=== PATIENT | female | born 1955 | race Caucasian/White ===

== ENCOUNTER → 2017-08-18 | Outpatient (CLI) | payer BC ==
--- NOTE | 2017-08-18 11:02 | RADIOLOGY IMAGING REPORT ---
FACILITY: [facility] [place] PATIENT NAME: Laurita Mobley : 1955 MR: [id number] V: [id number] EXAM DATE: ORDERING PHYSICIAN: LASHA NIELSON TECHNOLOGIST: Location: [facility] Patient: Laurita Mobley : 1955 Visit/Account:[id number] Date of Sevice: 08/18/2017 DEXA Scan Clinical history: Postmenopausal. Comparison: None available. LUMBAR SPINE: The bone mineral density (BMD) measured from L1-L4 correlates with a Z-score 2.3 and a T-score of 2.3 which is Normal as defined by the World Health Organization. The corresponding risk of fracture in the lumbar spine is Not increased compared with a young adult reference population. HIP: Bone mineral density (BMD) measured in the Left total hip region correlates with a Z-score 0.2 and a T-score of one which is Normal as defined by the World Health Organization. The corresponding risk o f fracture in the hip is Not increased compared with a young adult reference population. T score le ft femoral neck -1.4 Bone mineral density (BMD) measured in the Femoral Neck region measures 0.849 g/cm2. Impression: 1. Lumbar spine: Normal. 2. Left Hip: Normal. 3. Femoral Neck: Bone Mineral Density is 0.849 g/cm2 The next DEXA scan of this patient should include the following sites: L1-L4 and the left hip. FRAX? WHO Fracture Risk Assessment Tool link: <http://www.shef.ac.uk/FRAX/tool.jsp?locationValue=9> PLEASE NOTE: 1) The World Health Organization defines low BMD as follows: T-score Normal > -1 Osteopenia < -1 and > -2.5 Osteoporosis < -2.5 without fractures Established osteoporosis < -2.5 with fractures 2) In general, you may wish to consider: Diagnosis Treatment Follow-up DEXA Normal BMD Prevention 2-3 years Osteopenia Prevention/therapy 1-2 years Osteoporosis Therapy Yearly 3) Fracture risk estimated from the T-score is more accurate for vertebral fractures (often spontane ous) than for hip fractures. Report Dictated By: Sierra Whitaker MD at 08/18/2017 10:55 AM Report E-Signed By: Sierra Whitaker MD at 08/18/2017 10:56 AM CORDELLN:JERAMY
== END ==
LOC: RAD 09:38
PROVIDERS: ATTEND Nurse Practitioner Family
DX: Z13.820 Encounter for screening for osteoporosis (principal); Z78.0 Asymptomatic menopausal state
CPT/HCPCS: 77080

== ENCOUNTER → 2017-09-08 | Outpatient (CLI) | payer BC ==
--- NOTE | 2017-09-09 20:26 | RADIOLOGY IMAGING REPORT ---
FACILITY: [facility] [place] PATIENT NAME: LAURITA BAILEY : [id number] MR: [id number] V: [id number] EXAM DATE: ORDERING PHYSICIAN: LASHA NIELSON TECHNOLOGIST: Laurita Riley EXAMINATION:TWO-DIMENSIONAL ECHOCARDIOGRAPH REASON:ABN EKG 2D Measurements (normal values in centimeters) LV endLV endRV endVent.LV PostAorticLeftPercent DiastolicSystolicDiastolicSeptumWallRootAtriumShortening (3.5-5.7)(0.9-2.6)(0.6-1.1)(0.6-1.1)(2.0-3.7)(1.9-4.0)(25-35%) [id number]% STROKE VOLUME: 99ml ESTIMATED EJECTION FRACTION:72% PARASTERNAL LONG AXIS: Overall left ventricular systolic function appears to be normal. Right ventricle appears to be mildly enlarged. Other chamber sizes are normal. Aortic valve & mitral valve both appear to open normally. Color examination just revealed a trace of mitral insufficiency present. PARASTERNAL SHORT AXIS: Overall left ventricular systolic function again appears to be normal. No specific wall motion abnormalities are noted. Right ventricle is the upper range of normal in size if not slightly enlarged. Other chamber sizes are normal. Aortic valve is trileaflet in configuration & appears to open normally. Color examination of the tricuspid valve revealed a trace of tricuspid insufficiency. Color examination of the pulmonic valve & aortic valves were unremarkable. APICAL FOUR AND TWO CHAMBER: Normal left ventricular systolic function. Right ventricle appears to be borderline to mildly enlarged. Aortic valve area was measured within normal ranges at 3.8cm2. Mitral valve area was measured within normal ranges at 5.5cm2. Left atrial & right atrial volumes are measured within normal ranges at 27 & 26ml/m2. The tricuspid regurgitation Vmax measured 2.36m/sec. SUBCOSTAL VIEW: No pericardial effusion was noted. No atrioseptal or ventriculoseptal defects were appreciated. Doppler examination of the mitral valve in diastole does reveal the A wave > E wave suggesting decreased diastolic function. The IVC is normal in size. OVERALL IMPRESSION: 1. Essentially normal 2D echocardiograph. Normal left ventricular systolic function. Estimated ejection fraction 72% with a mild decrease in diastolic function consistent with age. 2. Normal chamber sizes except for the right ventricle which is borderline to mildly enlarged. 3. A trileaflet aortic valve with no abnormalities. 4. A trace of mitral & tricuspid insufficiency with normal right ventricular systolic pressures of 25mm Hg. No other abnormalities were noted. Dictated by: Rochelle Rojo M.D. on 09/08/2017 at 17:27 Transcribed by: NATHALIE on 09/09/2017 at 10:27 Approved by: Rochelle Rojo M.D. on 09/09/2017 at 20:24 [facility]
== END ==
LOC: US 02:19
PROVIDERS: ATTEND Nurse Practitioner Family
DX: I50.30 Unspecified diastolic (congestive) heart failure (principal); I51.7 Cardiomegaly; I34.0 Nonrheumatic mitral (valve) insufficiency; I07.1 Rheumatic tricuspid insufficiency
CPT/HCPCS: 93306

== ENCOUNTER 2017-09-22 00:25 | Inpatient (IN) | payer BC ==
--- NOTE | 2017-08-18 10:30 | EKG ---
FACILITY: [facility] - [place] PATIENT NAME: JODY BAILEY : [id number] MR: [id number] V: [id number] EXAM DATE: ORDERING PHYSICIAN: RAJ ROLDAN TECHNOLOGIST: DAIANA Franco Reason : PRE-OP KNEE Blood Pressure : / mmHG Vent. Rate : 062 BPM Atrial Rate : 062 BPM P-R Int : 172 ms QRS Dur : 084 ms QT Int : 422 ms P-R-T Axes : 053 009 034 degrees QTc Int : 428 ms Normal sinus rhythm Low voltage QRS Cannot rule out Anterior infarct , age undetermined Abnormal ECG No previous ECGs available Confirmed by WHIT ALEJO ([id number]) on 08/18/2017 4:04:38 PM Referred By: JAMAR Confirmed By:WHIT ALEJO
--- NOTE | 2017-08-18 10:41 | RADIOLOGY IMAGING REPORT ---
[place]AC[place] [facility] [place]IENT NAME: Laurita Mobley : 1955 MR: [id number] V: [id number] EXAM DATE: ORDERING PHYSICIAN: RAJ ROLDAN TECHNOLOGIST: [place] [facility] [place] Laurita Mobley : 1955 Visit/Account:[id number] Date of Sevice: 08/18/2017 Exam type: CHEST PA AND LAT History: History of pulmonary embolism Comparison: None. Findings: Both lungs are well-expanded. Some areas of linear scarring or atelectasis over the left midlung and right costophrenic angle are noted. No focal infiltrate, pleural effusion or pneumothorax. Heart size is slightly prominent. The osseous structures demonstrate a mild scoliosis with a pectus deformity and degenerative changes. IMPRESSION: 1. No acute cardiopulmonary disease. Report Dictated By: Terrell De La Torre MD at 08/18/2017 10:34 AM Report E-Signed By: Terrell De La Torre MD at 08/18/2017 10:36 AM WSN:[email or web address]
[2017-09-22] VITALS (15 sets, daily range): BP systolic 132–150; BP diastolic 60–77
[~2017-09-22] VITALS: Ht 165.1 cm; Wt 97.5 kg
[~2017-09-22 00:25] MED LIST: ASPI-757 PO; ATOR40TA24 PO; INSU100C14 SQ; LANI SUBQ; LEVO50TA86 PO; METF-420 PO; RAMI10CA52 PO; WARF10TA34 PO; WARF7.5T13 PO
[2017-09-22] MEDS ORDERED: LIDOCAINE/SOD BICARB 8.4% SYR ID ONE (07:45)
[2017-09-22] MEDS ORDERED: CLINDAMYCIN(*) 900 MG/NS 50 ML 50 ML IVPB ONE (07:45)
[2017-09-22] MEDS ORDERED: TRANEXAMIC AC 1000 MG/10ML SDV 1,000 MG in DEXTROSE 5% 50 ML BAG 50 ML IV ONE (07:45)
[2017-09-22] MEDS ORDERED: cloNIDine EPIDUR INJ 100MCG/ML 40 MCG, ROPIVACAINE 0.5% 20 ML VIAL 25 ML, EPINEPHrine H... INJ ONE (07:45)
[2017-09-22] MEDS ORDERED: MIDAZOLAM 2 MG/2 ML VIAL IVP PRN (07:45)
[2017-09-22] MEDS ORDERED: FAMOTIDINE 20 MG TAB PO ONE (07:45)
[2017-09-22] MEDS: NORMOSOL R SOLN(*) 1000 ML BAG 1,000 ML IV PRN ×2 (07:49→09:02)
[2017-09-22 07:59] LABS: INR 1.02
[2017-09-22] MEDS ORDERED: SCOPOLAMINE 1.5 MG PATCH TD ONE (08:05)
[2017-09-22] MEDS ORDERED: BUPIVACAINE 0.5% INJ 50ML VIAL INFIL ONE (10:05)
[2017-09-22] MEDS ORDERED: TRIAMCINOLONE ACE(*) 40 MG/ML 1 ML ONE (10:05)
[2017-09-22] MEDS ORDERED: KETAMINE HCL 200 MG/20 ML MDV ONE (10:14)
[2017-09-22] MEDS ORDERED: fentaNYL CITR 100 MCG/2 ML AMP ONE (10:20)
--- NOTE | 2017-09-22 10:28 | HISTORY AND PHYSICAL ---
DATE OF ADMISSION: September 22, 2017 IDENTIFICATION, CHIEF COMPLAINT Laurita is a 61-year-old woman with chief complaint of left knee pain. HISTORY OF PRESENT ILLNESS Patient has had a longstanding history of knee arthritis progressively painful and debilitating, refractory to conservative care. Surgery is indicated to relieve symptoms after failure of nonoperative measures. PAST MEDICAL HISTORY Notable for hypertension, controlled on medication, acid reflux disease. ALLERGIES TREE POLLEN and ADHESIVE tapes. She has no known drug allergies. CURRENT MEDICATIONS 1. Amlodipine 5/40 once a day. 2. Famotidine 40 mg p.o. q.day. 3. Baby aspirin p.o. q.day. 4. Multiple vitamins. PAST SURGICAL HISTORY Notable for resection of an acoustic neuroma. SOCIAL HISTORY Negative for tobacco use. She uses alcohol on a rare social occasion, denies abuse. FAMILY HISTORY Notable for heart disease in father, mother with cancer and a brother with leukemia. REVIEW OF SYSTEMS Review of systems otherwise noncontributory. PHYSICAL EXAMINATION GENERAL: This is a healthy female. HEENT: She is normocephalic, atraumatic. NECK: Supple. LUNGS: Clear. HEART: Regular. ABDOMEN: Soft. ORTHOPEDIC EXAM: The left knee is stiff at end of range of motion. There is an effusion present. Gross stability is good. Extensor function is intact. RADIOGRAPHIC DATA Radiographs demonstrate end-stage DJD. ASSESSMENT Left knee end-stage degenerative joint disease, progressively painful and debilitating, refractory to conservative care. PLAN Per patient request, will proceed with total knee arthroplasty. Nature of this procedure, risks, benefits, the anticipated rehab course were reviewed. The risks of the procedure include, but are not limited to, , major medical or anesthetic complication, infection, neurovascular injury, blood transfusion, stiffness, scarring, fracture, tendon rupture, instability, implant loosening, migration or failure, persistent or recurrent pain, need for future surgery, and other unforeseen. She understands and wishes to proceed. Signed permit was placed in the chart, no guarantees given or implied. AGUEDA
[2017-09-22] MEDS ORDERED: DEXAMETHASONE SOD PHOS 10MG/ML ONE (11:28)
[2017-09-22] MEDS ORDERED: PROPOFOL EMUL(*) 10MG/ML 20 ML 160 ML ONE (11:28)
[2017-09-22] MEDS ORDERED: ONDANSETRON 4 MG/2 ML VIAL ONE (11:28)
[2017-09-22] MEDS ORDERED: ROPIVACAINE 0.5% 20 ML VIAL ONE (11:29)
[2017-09-22] MEDS ORDERED: LIDOCAINE MPF 1% 5 ML VIAL ONE (11:29)
--- NOTE | 2017-09-22 11:49 | HISTORY AND PHYSICAL ---
DATE OF ADMISSION: September 22, 2017 IDENTIFICATION, CHIEF COMPLAINT Laurita is a 61-year-old woman with chief complaint of left knee pain. HISTORY OF PRESENT ILLNESS Patient has had a longstanding history of knee arthritis progressively painful and debilitating, refractory to conservative care. Surgery is indicated to relieve symptoms after failure of nonoperative measures. PAST MEDICAL HISTORY Notable for diabetes, hypothyroidism, history of pulmonary emboli, hypercholesterolemia. ALLERGIES PENICILLIN. CURRENT MEDICATIONS 1. Metformin 1000 mg p.o. b.i.d. 2. NovoLog sliding scale insulin. 3. Levothyroxine 50 mcg p.o. q.day. 4. Ramipril 10 mg p.o. q.day. 5. Coumadin 10 mg Thursday, Thursday, Thursday, 7.5 on the other days. 6. Atorvastatin 40 mg p.o. q.day. 7. Lantus 22 units x 2 in the morning and at bedtime. 8. Aspirin 325 mg p.o. b.i.d. PAST SURGICAL HISTORY Notable for C section x 3, tonsillectomy, thyroid surgery and knee arthroscopies. SOCIAL HISTORY Negative for tobacco use. She drinks alcohol on a rare social basis. REVIEW OF SYSTEMS Negative. FAMILY HISTORY Notable for mother with stroke and father with heart disease and stroke. PHYSICAL EXAMINATION GENERAL: This is a well-developed, well-nourished female, appears stated age. HEENT: She is normocephalic, atraumatic. NECK: Supple. LUNGS: Clear. HEART: Regular. ABDOMEN: Soft. ORTHOPEDIC EXAM: The left knee is stiff at end of range of motion. She has an effusion present. Crepitus is noted. Gross stability is good. Extensor function is intact. RADIOGRAPHIC DATA Radiographs demonstrate end-stage DJD. ASSESSMENT Left knee end-stage degenerative joint disease, progressively painful and debilitating, refractory to conservative care. PLAN Per patient request, we are going to proceed with total knee arthroplasty. Nature of this procedure, risks, benefits, the anticipated rehabilitative course were reviewed. Risks include, but are not limited to, , major medical or anesthetic complication, infection, neurovascular injury, blood transfusion, stiffness, scarring, fracture, tendon rupture, instability, implant loosening, migration or failure, persistent or recurrent pain, need for additional surgery, and other unforeseen. She understands and wishes to proceed. Signed consent was placed in the chart, no guarantees given or implied. MTDD
[2017-09-22] MEDS ORDERED: ZOLPIDEM TARTRATE 5 MG TAB PO PRN (13:05)
[2017-09-22] MEDS ORDERED: diphenhydrAMINE 25 MG CAP PO PRN (13:05)
[2017-09-22] MEDS ORDERED: ACETAMINOPHEN 325 MG TAB PO PRN (13:05)
[2017-09-22] MEDS ORDERED: BENZOCAINE/MENTHOL 1 EACH LOZG PO PRN (13:05)
[2017-09-22] MEDS ORDERED: PROMETHAZINE 25 MG/ML 1 ML AMP IVP PRN (13:05)
[2017-09-22] MEDS ORDERED: NORMOSOL R SOLN(*) 1000 ML BAG 1,000 ML IV PRN (13:05)
[2017-09-22] MEDS ORDERED: BISACODYL 10 MG SUPP PR PRN (13:05)
[2017-09-22] MEDS ORDERED: FLUSH 10 ML SYR IVP PRN (13:05)
[2017-09-22] MEDS ORDERED: MAGNESIUM HYDROXIDE* 30ML UDCP PO PRN (13:05)
[2017-09-22] MEDS ORDERED: diphenhydrAMINE 50 MG/ML VIAL IVP PRN (13:05)
[2017-09-22] MEDS ORDERED: DIAZEPAM 5 MG TAB PO PRN (13:05)
--- NOTE | 2017-09-22 13:32 | RADIOLOGY IMAGING REPORT ---
FACILITY: [facility] [place] PATIENT NAME: Laurita Mobley : 1955 MR: [id number] V: [id number] EXAM DATE: ORDERING PHYSICIAN: RAJ ROLDAN TECHNOLOGIST: [place] [facility] [place] Patient: Laurita Mobley : 1955 Visit/Account:[id number] Date of Sevice: 09/22/2017 Exam type: KNEE LIMITED LEFT History: Status post left total knee arthroplasty Comparison: None. Findings: There is a left knee arthroplasty that appears in good anatomic alignment on the AP and lateral views . Soft tissue gas and skin armando project over the anterior aspect of this postoperative knee IMPRESSION: 1. As above Report Dictated By: Sierra Whitaker MD at 09/22/2017 12:48 PM Report E-Signed By: Sierra Whitaker MD at 09/22/2017 1:27 PM WSN:[email or web address]
--- NOTE | 2017-09-22 15:21 | Hospitalist Consultation ---
History of Present Illness Requesting Physician Dr. Sexton Reason for Consult Medication Management Chief Complaint s/p left knee replacement History of Present Illness She was admitted s/p left knee replacement. She has a history of DVT and pulmonary embolism. Her last DVT was 5 years ago. She got the DVT while on Coumadin with an INR of 2.5 during a flight to [place]. She states that she was told to take aspirin 325mg twice daily and Coumadin together by Negra Rosas to help reduce the risk of blood clots. Since she has started the Aspirin and Coumadin together, she has had no blood clots. Her INR she states should be maintained 2.5-3.5 due to her clotting. History Problems: (1) Diabetes Status: Chronic (2) Hypertension Status: Chronic (3) Hypothyroidism Status: Chronic (4) DVT (deep venous thrombosis) Status: Chronic (5) Pulmonary embolism Status: Chronic Home Meds Reported Medications Aspirin (ASPIRIN) 325 Mg Tablet, 325 MG PO BID, TAB 09/16/17 Insulin Aspart (NOVOLOG) 100 Unit/1 Ml Cartridge, 8-12 UNIT SQ TID 09/16/17 Insulin Glargine (LANTUS) 100 Unit/Ml Soln, 22 UNIT SUBQ BID, ML 09/16/17 Atorvastatin Calcium (LIPITOR) 40 Mg Tablet, 1 TAB PO QDAY, TAB 09/16/17 Warfarin Sodium (WARFARIN SODIUM) 7.5 Mg Tablet, 7.5 MG PO 5xw, TAB 09/16/17 Warfarin Sodium (WARFARIN SODIUM) 10 Mg Tablet, 10 MG PO 2XW, TAB sun and thurs 09/16/17 Ramipril (RAMIPRIL) 10 Mg Capsule, 10 MG PO QDAY, CAPSULE 09/16/17 Levothyroxine Sodium (LEVOTHYROXINE SODIUM) 50 Mcg Tablet, 50 MCG PO QDAY, TAB 09/16/17 Metformin Hcl (METFORMIN HCL) 1,000 Mg Tablet, 1 TAB PO BID, TAB 09/16/17 Allergies: Coded Allergies: iodine (Verified Allergy, Severe, HIVES , 09/16/17) Penicillins (Verified Allergy, Intermediate, RASH, 09/16/17) Patient History: FH: heart disease FATHER FH: stroke FATHER MOTHER Hx Smoking: No Smoking Status: Never Smoker Caffeine Intake: Coffee Caffeine/Cups Per Day: 1 CUP A DAY Hx Alcohol Use: Yes Hx Substance Use Disorder: No Review of Systems All Systems Reviewed/Normal: Yes, Except as Noted Exam Vital Signs Vital Signs Date Time Temp Pulse Resp B/P (MAP) Pulse Ox O2 Delivery O2 Flow Rate FiO2 09/22/17 14:40 96 Nasal Cannula 2.0 09/22/17 13:57 97.8 61 16 150/75 (100) General Appearance: Alert, Awake, No Acute Distress, Afebrile Cardiovascular: Regular Rate and Rhythm Respiratory: No Respiratory Distress, Clear to Auscultation Psych: Alert & Oriented X3, Appropriate Mood & Affect Assessment and Plan Problems: (1) Status post total left knee replacement Status: Chronic Assessment & Plan: Followed by Dr. Sexton. (2) DVT (deep venous thrombosis) Status: Chronic Assessment & Plan: She is on chronic treatment with Coumadin and Aspirin. She will be restarted on Lovenox tomorrow. She will restart her Coumadin tonight. She will get daily INR's for management of Coumadin dose. (3) Diabetes Status: Chronic Assessment & Plan: She is on chronic treatment with Metformin, Lantus, and Novolog. She will be started only on a sliding scale level 2 now, until she starts gaining her appetite. The rest of the medications will be held at this time. (4) Hypertension Status: Chronic Assessment & Plan: She is on chronic treatment with Ramipril. This medication was restarted with hold parameters. (5) Hypothyroidism Status: Chronic Assessment & Plan: She is on chronic treatment with levothyroxine. (6) Hyperlipidemia Status: Chronic Assessment & Plan: She is on chronic treatment with atorvastatin. Venous Thromboembolism Antithrombotics Is Pt On Any Antithrombotics?: Yes DREW COOPER CANE PILER Sep 22, 2017 15:21
[2017-09-22] MEDS: INSULIN HUM LISPRO 100 UN/ML 3 ML VIAL SUBQ PRN ×2 (15:54→21:17)
[2017-09-22] MEDS: CLINDAMYCIN(*) 900 MG/NS 50 ML 50 ML IVPB SCH (17:07)
[2017-09-22] MEDS: CELECOXIB 200 MG CAP PO SCH (17:08)
[2017-09-22] MEDS: APAP/HYDROCODONE 325/7.5 TAB PO PRN (18:21)
[2017-09-22] MEDS ORDERED: WARFARIN SOD 7.5 MG TAB PO ONE (21:00)
[2017-09-22] MEDS: ATORVASTATIN 40 MG TAB PO SCH (21:14)
[2017-09-23] VITALS (7 sets, daily range): BP systolic 120–159; BP diastolic 51–70; Ht 165.1 cm; Wt 97.5 kg
[2017-09-23] MEDS: CLINDAMYCIN(*) 900 MG/NS 50 ML 50 ML IVPB SCH ×2 (00:19→08:37)
--- NOTE | 2017-09-23 00:19 | OPERATIVE REPORT 1 ---
EVENT DATE: September 22, 2017 SURGEON: To Sexton MD ANESTHESIOLOGIST: Federico Amador MD ANESTHESIA: General plus spinal. PLANT BIOLOGY PROFESSOR: MANUEL [place] PREOPERATIVE DIAGNOSES 1. Left knee degenerative joint disease. 2. Right knee degenerative joint disease. POSTOPERATIVE DIAGNOSES 1. Left knee degenerative joint disease. 2. Right knee degenerative joint disease. PROCEDURES PERFORMED 1. Left total knee arthroplasty. 2. Injection of corticosteroid in the right knee. ESTIMATED BLOOD LOSS Minimal. DRAINS None. SPECIMENS None. COMPLICATIONS None apparent. TOURNIQUET TIME 56 minutes. IMPLANTS USED Ecolibriumathlon knee system with 4 left PS femur, 5 standard tibial baseplate , 33 mm universal cemented all-polyethylene patellar button, and 11 mm PS tibial tray liner. Polyethylene is X3. INDICATIONS Laurita has intractable pain related to end-stage knee arthritis. Surgery is indicated to relieve symptoms after failure of nonoperative measures. DESCRIPTION OF PROCEDURE The patient was taken to the operating room and placed supine on the operating table. Spinal block was administered by the anesthesiologist. General anesthesia was induced. Antibiotics and TXA were administered IV. First, the right knee was prepped and then infiltrated with 1 mL of Marcaine and 40 mg Kenalog. Subsequently, the left lower extremity was prepped and draped in the usual sterile fashion for orthopedic surgery. Limb was exsanguinated with an Esmarch bandage. Tourniquet inflated to 275 mmHg. Midline longitudinal incision made, carried down through the skin and subcutaneous tissue to the extensor mechanism. Full-thickness flaps developed far enough medially to allow medial parapatellar arthrotomy be performed. Patella was everted, and the knee was brought into a flexed position. Fat pad, anterior horns of the menisci, and the cruciate ligaments were debrided. A subperiosteal medial released was initiated in a titrated fashion to start to balance the knee. A step drill was used to enter the distal femur. A 10 cm alignment guide was used to engage the isthmus. Cut was set for 6 degrees of valgus relative with the anatomic axis. A 10 mm resection block was applied, pinned, and cuts made with an oscillating saw. AP sizing guide was applied to the distal femur, positioned in 3 degrees of external rotation relative to the posterior condyles. A size 4 was optimal without risk of notching. The four-in-one cutting block was applied. Anterior, posterior, posterior chamfer, and anterior chamfer cuts were made respectively. PS block was applied and centered. Medial and lateral bone was removed through the box. Trial femur had nice [id number] fit. Attention was turned to tibial preparation. The extramedullary guide was applied, positioned for varus, valgus, posterior slope , and rotation. This was set to resect 9 mm from the relatively intact lateral tibial plateau. It was dropped down a couple more millimeters to ensure an adequate cut. Block is pinned, extramedullary alignment check is made, and cuts made with an oscillating saw. After osteophyte removal and a bit of additional release, gaps were balanced and symmetric. The size 5 tibial baseplate provides optimum bony coverage without soft tissue overhang. This is inserted along with the trial liner and the trial femur. Knee is brought to extension. Patella is taken from a starting thickness of 22 to a residual of 14 with a patellar clamp and oscillating saw. A 33 provides optimum bony coverage without soft tissue overhang. Lug holes were drilled. Patella tracks nicely with the no-touch technique. Final tibial preparation consists of assuring appropriate rotational and translational positioning of the component. The boss is reamed. Fin is punched. Surfaces are copiously lavaged. All loose debris is removed. Mixed polymethyl methacrylate was made, and the components cemented in a single stage. Once the cement is fully polymerized, the tourniquet is deflated, hemostasis is assured, and the wound is copiously lavaged to remove all loose debris. An 11 PS tibial tray liner fills up the gap ideally, allowing the knee to drop to full extension without hyperextension , providing optimal soft tissue tension and stability. The tray was lavaged and dried, and the actual liner was locked into the baseplate. Joint was reduced. Arthrotomy was closed in flexion with #2 Ethibond, subcutaneous tissue with 3-0 Vicryl, skin with surgical armando. Xeroform and 4 x 4's applied as a dry, sterile dressing and compression wrap. The patient was awakened from anesthesia and taken to the recovery room in stable condition having tolerated the procedure well. Plan is for standard TKA rehab protocol. [facility]PITAL[facility]
[2017-09-23] MEDS: APAP/HYDROCODONE 325/7.5 TAB PO PRN ×4 (00:40→20:35)
[2017-09-23 05:52] LABS: INR 1.1
[2017-09-23] MEDS: LEVOTHYROXINE SOD 0.05 MG TAB PO SCH (06:04)
[2017-09-23] MEDS: INSULIN HUM LISPRO 100 UN/ML 3 ML VIAL SUBQ PRN ×4 (07:18→20:32)
[2017-09-23] MEDS: CELECOXIB 200 MG CAP PO SCH ×2 (08:31→16:17)
[2017-09-23] MEDS: RAMIPRIL 2.5 MG CAP PO SCH (08:31)
[2017-09-23] MEDS: ENOXAPARIN 100 MG/ML SYR SC SCH ×2 (08:31→20:33)
--- NOTE | 2017-09-23 11:07 | Hospitalist Progress Note ---
Subjective Progress Notes Subjective She has no complaints this morning. Patient Complains of: Cardiovascular: No: Chest Pain Respiratory: No: Shortness of Breath Physical Exam Vital Signs Date Time Temp Pulse Resp B/P (MAP) Pulse Ox O2 Delivery O2 Flow Rate FiO2 09/23/17 07:26 90 Room Air 09/23/17 07:21 98.1 68 16 140/64 (89) 09/23/17 04:48 1.0 Intake and Output 09/24/17 01:00 Intake Total 550 ml Balance 550 ml Intake Oral 500 ml IV Total 50 ml # Voids 2 General Appearance: Alert, Awake, No Acute Distress, Afebrile Cardiovascular: Regular Rate and Rhythm Respiratory: No Respiratory Distress, Clear to Auscultation Psych: Alert & Oriented X3, Appropriate Mood & Affect Assessment and Plan Problems: (1) Status post total left knee replacement Status: Chronic Assessment & Plan: Followed by Dr. Sexton. (2) DVT (deep venous thrombosis) Status: Chronic Assessment & Plan: She is on chronic treatment with Coumadin and Aspirin. She will be restarted on Lovenox today. She restarted her Coumadin last night. She will get daily INR's for management of Coumadin dose. INR today is 1.10. (3) Diabetes Status: Chronic Assessment & Plan: She is on chronic treatment with Metformin, Lantus, and Novolog. She will be started only on a sliding scale level 2 now, until she starts gaining her appetite. The rest of the medications will be held at this time. She will get AC/HS blood sugars. (4) Hypertension Status: Chronic Assessment & Plan: She is on chronic treatment with Ramipril. This medication was restarted with hold parameters. (5) Hypothyroidism Status: Chronic Assessment & Plan: She is on chronic treatment with levothyroxine. (6) Hyperlipidemia Status: Chronic Assessment & Plan: She is on chronic treatment with atorvastatin. Exam Sepsis Risk: No Definite Risk DREW COOPER [address] [employer]SC[employer] ARCHITECT Sep 23, 2017 11:07
[2017-09-23] MEDS: ATORVASTATIN 40 MG TAB PO SCH (20:33)
[2017-09-23] MEDS ORDERED: WARFARIN SOD 10 MG TAB PO SCH (21:00)
[2017-09-24 03:12] VITALS: BP 126/51
[2017-09-24] MEDS: APAP/HYDROCODONE 325/7.5 TAB PO PRN ×4 (03:14→19:17)
[2017-09-24] MEDS: LEVOTHYROXINE SOD 0.05 MG TAB PO SCH (05:44)
[2017-09-24 06:49] VITALS: BP 135/68
[2017-09-24 07:17] LABS: INR 1.46
[2017-09-24] MEDS: INSULIN HUM LISPRO 100 UN/ML 3 ML VIAL SUBQ PRN ×4 (07:29→21:12)
[2017-09-24] MEDS: CELECOXIB 200 MG CAP PO SCH ×2 (07:39→16:19)
[2017-09-24] MEDS: RAMIPRIL 2.5 MG CAP PO SCH (08:58)
[2017-09-24] MEDS: ENOXAPARIN 100 MG/ML SYR SC SCH ×2 (08:58→21:00)
[2017-09-24] MEDS: INSULIN GLARGINE 100 U/ML 3 ML PEN SUBQ SCH (08:58)
[2017-09-24 11:08] VITALS: BP 127/62
--- NOTE | 2017-09-24 11:20 | Hospitalist Progress Note ---
Subjective Progress Notes Subjective She has no complaints this morning. Patient Complains of: Cardiovascular: No: Chest Pain Respiratory: No: Shortness of Breath Physical Exam Vital Signs Date Time Temp Pulse Resp B/P (MAP) Pulse Ox O2 Delivery O2 Flow Rate FiO2 09/24/17 11:08 98.3 57 16 127/62 (83) 96 Nasal Cannula 1.0 Intake and Output 09/25/17 06:59 Intake Total 480 ml Balance 480 ml Intake Oral 480 ml # Voids 2 General Appearance: Alert, Awake, No Acute Distress, Afebrile Cardiovascular: Regular Rate and Rhythm Respiratory: No Respiratory Distress, Clear to Auscultation Psych: Alert & Oriented X3, Appropriate Mood & Affect Assessment and Plan Problems: (1) Status post total left knee replacement Status: Chronic Assessment & Plan: Followed by Dr. Sexton. (2) DVT (deep venous thrombosis) Status: Chronic Assessment & Plan: She is on chronic treatment with Coumadin and Aspirin. She restarted Lovenox 09/23. She restarted her Coumadin 09/22. She will get daily INR' s for management of Coumadin dose. INR today is 1.46. (3) Diabetes Status: Chronic Assessment & Plan: She is on chronic treatment with Metformin, Lantus, and Novolog. She will continue a sliding scale level 2, and start Lantus 10u in the morning. The rest of the medications will be held at this time. She will get AC /HS blood sugars. She had steroid injection during surgery, which could cause difficulty managing blood sugars. (4) Hypertension Status: Chronic Assessment & Plan: She is on chronic treatment with Ramipril. This medication was restarted with hold parameters. (5) Hypothyroidism Status: Chronic Assessment & Plan: She is on chronic treatment with levothyroxine. (6) Hyperlipidemia Status: Chronic Assessment & Plan: She is on chronic treatment with atorvastatin. Exam Sepsis Risk: No Definite Risk DREW COOPER ELECT[employer] BE[employer] OPERATOR Sep 24, 2017 11:20
[2017-09-24 16:17] VITALS: BP 138/62
[2017-09-24 18:59] VITALS: BP 130/54
[2017-09-24] MEDS: ATORVASTATIN 40 MG TAB PO SCH (20:59)
[2017-09-24] MEDS ORDERED: WARFARIN SOD 7.5 MG TAB PO SCH (21:00)
[2017-09-24 23:14] VITALS: BP 127/61
[2017-09-25 03:25] VITALS: BP 146/66
[2017-09-25] MEDS: APAP/HYDROCODONE 325/7.5 TAB PO PRN ×2 (05:14→09:07)
[2017-09-25] MEDS: LEVOTHYROXINE SOD 0.05 MG TAB PO SCH (05:15)
[2017-09-25 06:16] LABS: INR 1.61
[2017-09-25 06:59] VITALS: BP 138/57
[2017-09-25] MEDS: INSULIN HUM LISPRO 100 UN/ML 3 ML VIAL SUBQ PRN (08:05)
[2017-09-25] MEDS: CELECOXIB 200 MG CAP PO SCH (08:20)
[2017-09-25] MEDS: INSULIN GLARGINE 100 U/ML 3 ML PEN SUBQ SCH (08:21)
[2017-09-25] MEDS: RAMIPRIL 2.5 MG CAP PO SCH (08:21)
[2017-09-25] MEDS ORDERED: ENO150PT SQ (08:49)
--- NOTE | 2017-09-25 08:57 | Hospitalist Progress Note ---
Subjective Progress Notes Subjective She has no complaints this morning. Patient Complains of: Cardiovascular: No: Chest Pain Respiratory: No: Shortness of Breath Physical Exam Vital Signs Date Time Temp Pulse Resp B/P (MAP) Pulse Ox O2 Delivery O2 Flow Rate FiO2 09/25/17 07:45 94 Room Air 09/25/17 06:59 97.8 62 16 138/57 (84) 1.0 Intake and Output 09/26/17 07:00 # Voids 1 General Appearance: Alert, Awake, No Acute Distress, Afebrile Cardiovascular: Regular Rate and Rhythm Respiratory: No Respiratory Distress, Clear to Auscultation Psych: Alert & Oriented X3, Appropriate Mood & Affect Assessment and Plan Problems: (1) Status post total left knee replacement Status: Chronic Assessment & Plan: Followed by Dr. Sexton. (2) DVT (deep venous thrombosis) Status: Chronic Assessment & Plan: She is on chronic treatment with Coumadin and Aspirin. She restarted Lovenox 09/23. She restarted her Coumadin 09/22. She will get INR rechecked on Thursday. INR today is 1.61. She will continue her usual Coumadin dose prior to admission along with Lovenox 150mg SQ daily. She will follow up Negra Rosas next week for INR evaluation. (3) Diabetes Status: Chronic Assessment & Plan: She is on chronic treatment with Metformin, Lantus, and Novolog. She will continue a sliding scale with Novolog, and start Lantus 10u twice daily. The Metformin will be held at this time. She will check her blood sugars at home. She had steroid injection during surgery, which could cause difficulty managing blood sugars. She will follow up with Negra Rosas regarding her diabetes next week. (4) Hypertension Status: Chronic Assessment & Plan: She is on chronic treatment with Ramipril. (5) Hypothyroidism Status: Chronic Assessment & Plan: She is on chronic treatment with levothyroxine. (6) Hyperlipidemia Status: Chronic Assessment & Plan: She is on chronic treatment with atorvastatin. Exam Sepsis Risk: No Definite Risk DREW COOPER [employer]GER [employer] Sep 25, 2017 08:57
[2017-09-25] MEDS ORDERED: ENOXAPARIN 100 MG/ML SYR SC ONE (09:00)
[2017-09-25] MEDS ORDERED: HYDR-4308 PO (09:01)
== END 2017-09-25 09:40 | disposition home or self-care (01) | DRG 470 ==
LOC: OR 00:25 → MED 13:50
PROVIDERS: ADMIT Orthopaedic Surgery; ATTEND Orthopaedic Surgery
PROC: 0SRD0J9 Replacement of Left Knee Joint with Synthetic Substitute, Cemented, Open Approach (ICD-10-PCS; principal; 2017-09-22 09:52)
PROC: 3E0U33Z Introduction of Anti-inflammatory into Joints, Percutaneous Approach (ICD-10-PCS; 2017-09-22 09:52)
DX: M17.0 Bilateral primary osteoarthritis of knee (principal); I10 Essential (primary) hypertension; K21.9 Gastro-esophageal reflux disease without esophagitis; E11.9 Type 2 diabetes mellitus without complications; E03.9 Hypothyroidism, unspecified; E78.00 Pure hypercholesterolemia, unspecified; E66.9 Obesity, unspecified; Z86.711 Personal history of pulmonary embolism; Z79.01 Long term (current) use of anticoagulants; Z88.0 Allergy status to penicillin; Z68.35 Body mass index [BMI] 35.0-35.9, adult; Z86.718 Personal history of other venous thrombosis and embolism; Z90.710 Acquired absence of both cervix and uterus; Z79.4 Long term (current) use of insulin
CPT/HCPCS: 36415; 36416; 71046; 76942; 82948; 85610; 86850; 86900; 86901; 93005; 97161; C1713; C1776; J0171; J0735; J1100; J1650; J1815; J1885; J2001; J2250; J2405; J2704; J2795; J3010; J3301; J3490; J7050; J7060

== ENCOUNTER → 2018-12-31 | Outpatient (CLI) | payer BC ==
[2017-09-23 16:44] VITALS: BMI 35.8
[~2018-12-31] MED LIST changes: +ENO150PT SQ; +HYDR-654 PO; +IOPAMIDOL 76% 100 ML INFUS BTL 100 ML ONE; -METF-420 PO; +METF-452 PO; +NS(*) 0.9% 50 ML BAG 50 ML ONE; -RAMI10CA52 PO; +RAMI10CA9 PO; +WARF10TA10 PO; -WARF10TA34 PO
--- NOTE | 2018-12-31 13:49 | RADIOLOGY IMAGING REPORT ---
FACILITY: [facility] [place] PATIENT NAME: Laurita Mobley : 1955 MR: [id number] V: [id number] EXAM DATE: ORDERING PHYSICIAN: LASHA NIELSON TECHNOLOGIST: Location: [facility] [place] Patient: Laurita Mobley : 1955 Visit/Account:[id number] Date of Sevice: 12/31/2018 CT angiogram chest with contrast Indication: Elevated d-dimer. Evaluate for pulmonary embolism. Comparison: None available. Technique: Axial CT images are obtained through the chest after administration of 75 mL Isovue 370 IV contrast. Reformatted coronal and sagittal images were reviewed as well as coronal MIP images. One o f the following dose optimization techniques was utilized in the performance of this exam: Automated exposure control; adjustment of the mA and/or kV according to the patient's size; or use of an iterat ana reconstruction technique. Specific details can be referenced in the facility's radiology CT exa m operational policy. Note, there was a contrast extravasation into the left upper extremity. Approximately 75 mL of Isovu e-370 and 50 mL of saline extravasated into the upper arm. Patient was given instructions to keep th e arm elevated. If skin changes become evident, patient is to seek medical attention. The patient's referring clinician's office was also informed of the extravasation. FINDINGS: There is no evidence of acute pulmonary embolism. There is no axillary adenopathy. There are no enl arged mediastinal nodes. A borderline right hilar node measures 10 mm in short axis on image 44. Th ere are no enlarged left hilar nodes. No pericardial effusion or pleural effusion is identified. There are a few scattered atherosclerotic calcifications within the aortic arch. There is an atrophic appearing right thyroid lobe. Has there been prior partial thyroidectomy? Thyro id ultrasound could be performed if indicated. Examination of the lung windows demonstrates a right upper lobe nodule on image 130 which measures 5 mm. A right middle lobe nodule on image 189 measures 4 mm. Dependent atelectasis involves the right lower lobe. On the left side, linear scarring/atelectasis is seen in the lingula. There is depende nt atelectasis in the lower lobe without focal nodule. Limited images of the upper abdomen demonstrate scattered atherosclerosis within the abdominal aorta. Multilevel degenerative disc disease involves the thoracic spine. No compression fracture deformit y is seen. IMPRESSION: 1. No evidence of acute pulmonary embolism. 2. Right upper lobe and right middle lobe pulmonary nodules as detailed above. See below recommenda tions for follow-up. 3. Atrophic appearing right thyroid lobe. Correlate for possible prior right partial thyroidectomy. If indicated, consider thyroid sonography for further evaluation. 4. Scattered atherosclerosis. [employer] FOLLOW-UP GUIDELINES FOR NEWLY DETECTED INCIDENTAL NODULES IN PERSONS 35 YEARS OF AGE OR OLDER. *These recommendations do NOT apply to lung cancer screening, patients with immunosuppression or winsome ents with a known primary malignancy. MULTIPLE SOLID NODULES If nodule size is < 6 mm: * Low risk patient ? No routine follow-up. * High risk patient ? Optional CT at 12 months. If nodule size is 6-8 mm: * Low risk patient ? CT at 3-6 months, then consider CT at 18-24 months if no change. * High risk patient ? CT at 3-6 months, then CT at 18-24 months if no change. If nodule size is > 8 mm: * Low risk patient ? CT at 3-6 months, then consider CT at 18-24 months if no change. * High risk patient ? CT at 3-6 months, then consider CT at 18-24 months if no change. LOW RISK PATIENT: Minimal or absent history of tobacco use and of other known risk factors. HIGH RISK PATIENT: Tobacco use, family history of lung cancer, upper pulmonary lobe location of nodul e, presence of emphysema, pulmonary fibrosis, older age. Carol H, Kimberley DP, Archana DUKES, et al. Guidelines for Management of Incidenta Pulmonary Nodules Dete cted on CT Images: From the [employer] Society 2017. Radiology. uchnipn Report Dictated By: Suresh Bose at 12/31/2018 1:24 PM Report E-Signed By: Suresh Bose at 12/31/2018 1:43 PMWSN:[id number]
== END ==
LOC: CT 02:25
PROVIDERS: ATTEND Nurse Practitioner Family
DX: R91.8 Other nonspecific abnormal finding of lung field (principal)
CPT/HCPCS: 71275; J7050; Q9967